=== PATIENT | female | born 1975 | race African-American/Black ===

== ENCOUNTER 2024-12-22 03:05 | Inpatient (IN) | payer BC ==
[2024-12-22] VITALS (8 sets, daily range): BP systolic 100–150; BP diastolic 67–93; PULSE 66–93; RESP 14–25; TEMP 35.9–36.9; O2SAT 89–98
[~2024-12-22] VITALS: Ht 167.6 cm; Wt 87.7 kg
[2024-12-22] MEDS: SODIUM CHLORIDE 0.9% (SEPSIS BOLUS) IV ONE (03:24)
[2024-12-22] MEDS: PIPERACILLIN/TAZO 3.375G/50ML 50 ML IV ONE (03:27)
[2024-12-22 03:37] LABS: BASOPHILS % 0.8 % (0.0-2.0); EOSINOPHILS % 1.4 % (0.0-5.0); HEMATOCRIT. 27.8 % (36.0-48.0); HEMOGLOBIN. 8.2 g/dL (12.0-16.0); LYMPHOCYTES % 26.9 % (20.0-50.0); MEAN CORPUSCULAR HEMOGLOBIN 18.4 pg (28.0-32.0); MEAN CORPUSCULAR HGB CONC 29.5 g/dL (31.0-37.0); MEAN CORPUSCULAR VOLUME 62.3 fL (81.0-99.0); MONOCYTES % 8.5 % (2.0-8.0); NEUTROPHILS % 62.4 % (40.0-76.0); PLATELET 219 x1000/uL (130-400); RED BLOOD CELL COUNT 4.47 mill/uL (4.2-5.4); RED CELL DISTRIBUTION WIDTH 22.8 % (11.6-14.6); WHITE BLOOD COUNT 7.4 x1000/uL (4.5-11.0)
[2024-12-22] MEDS: VANCOMYCIN 1G PREMIX 200 ML IV ONE (03:41)
[2024-12-22 03:45] LABS: PROTHROMBIN TIME 10.6 sec (9.6-11.0)
[2024-12-22 03:47] LABS: ADD RBC MORPHOLOGY YES; CHLORIDE 106 mEq/L (98-107); DIFFERENTIAL COMMENT 1; POTASSIUM 3.1 mEq/L (3.5-5.1); SODIUM 140 mEq/L (136-145)
[2024-12-22 03:48] LABS: CARBON DIOXIDE 26 mEq/L (21-32)
[2024-12-22 03:49] LABS: CALCIUM 8.7 mg/dL (8.7-10.4)
[2024-12-22 03:53] LABS: GLUCOSE 166 mg/dL (70-105)
[2024-12-22 03:54] LABS: AMMONIA 23 uMol/L (<32); ETHANOL BLOOD < 10 mg/dL (<10); UREA NITROGEN BLOOD 12 mg/dL (9-23)
[2024-12-22 03:55] LABS: ALANINE AMINOTRANSFERASE 15 IU/L (10-49); ALBUMIN 4.1 g/dL (3.2-4.8); ASPARTATE AMINOTRANSFERASE 25 IU/L (<34); BILIRUBIN DIRECT 0.2 mg/dL (<=3.0)
[2024-12-22 03:56] LABS: BILIRUBIN TOTAL 0.5 mg/dL (0.1-1.0); PROTEIN TOTAL 7.4 g/dL (6.0-8.3)
[2024-12-22 04:00] LABS: TROPONIN I HIGH SENSITIVITY 41 ng/L (3.0-34)
[2024-12-22 04:01] LABS: LACTIC ACID 2.2 mmol/L (0.4-2.0)
[2024-12-22] MEDS: NOREPINEPHRINE 8 MG in DEXT 5% WATER 242 ML IV STA (04:30)
[2024-12-22 04:33] LABS: BG CARBOXYHEMOGLOBIN 3.9 % (0.5-1.5); BG DEOXYHEMOGLOBIN 3.9 % (0.0-5.0); BG FRACTION INSPIRED OXYGEN 28; BG HCO3 ACT 20.2 mmol/L (21.0-28.0); BG METHEMOGLOBIN 0.2 % (0.5-1.5); BG OXYGEN SATURATION 95.9 % (94.0-98.0); BG PCO2 38.1 mmHg (32.0-45.0); BG PH 7.343 (7.350-7.450); BG PO2 93.1 mmHg (83.0-108.0); BG SAMPLE SITE RIGHT RADIAL; BG TOTAL HEMOGLOBIN 8.2 g/dL (12.0-16.0); BG VENT MODE NASAL CANNULA
[2024-12-22] MEDS ORDERED: NOREPINEPHRINE 8MG/250ML PMX 250 ML IV NR (04:45)
[2024-12-22] MEDS ORDERED: ACETAMINOPHEN 650MG SUPP PR PRN (06:45)
[2024-12-22] MEDS ORDERED: PHENYLEPHRINE 100 MG in DEXT 5% WATER 240 ML IV PRN (06:45)
[2024-12-22] MEDS ORDERED: ONDANSETRON HCL 4MG/2ML INJ IV PRN ×2 (06:45→10:15)
[2024-12-22] MEDS: DEXT 5%/0.45% NACL 1000ML 1,000 ML IV SCH (06:58)
[2024-12-22] MEDS: POTASSIUM CHLORIDE 20MEQ TABLET SR PO SCH ×2 (08:30→11:19)
[2024-12-22 09:03] LABS: PHOSPHORUS 3.5 mg/dL (2.5-4.9)
[2024-12-22] MEDS ORDERED: ACETAMINOPHEN 325MG TABLET PO PRN (10:15)
[2024-12-22] MEDS ORDERED: MAGNESIUM/ALUMINUM HYDROXIDE/SIMETHICONE 30ML UDC PO PRN (10:15)
[2024-12-22 11:01] LABS: ANISOCYTOSIS 2+; MICROCYTOSIS 2+
[2024-12-22 11:02] LABS: HYPOCHROMASIA 1+; PLATELET ESTIMATE NORMAL
[2024-12-22] MEDS: PANTOPRAZOLE SODIUM 40 MG/VIAL IV SCH (11:16)
[2024-12-22] MEDS: PIPERACILLIN/TAZO 3.375G/50ML 50 ML IV SCH (11:16)
[2024-12-22] MEDS: VANCOMYCIN 750MG/150ML (BAXTER) IV SCH (11:17)
[2024-12-22] MEDS ORDERED: METHYLPREDNISOLONE SOD SUCC 125MG/2ML (ACT-O-VIAL) IV SCH (14:00)
[2024-12-22] MEDS: SODIUM CHLORIDE 0.9% 3ML FLUSH IVF SCH (15:05)
[2024-12-22] MEDS: ACETAMINOPHEN 325MG TABLET PO PRN (15:08)
[2024-12-22 18:06] LABS: TROPONIN I HIGH SENSITIVITY 60 ng/L (3.0-34)
[2024-12-22] MEDS: SODIUM CHLORIDE 0.9% 1,000 ML IV SCH (20:25)
[2024-12-22 20:47] LABS: TROPONIN I HIGH SENSITIVITY 56 ng/L (3.0-34)
[2024-12-22] MEDS: DIPHENHYDRAMINE 50MG/ML VIAL IV PRN (22:17)
[2024-12-23] VITALS: BP 126/96; PULSE 78; RESP 22; TEMP 37.6
[2024-12-23 03:27] LABS: CLARITY URINE CLEAR (CLEAR); COLOR URINE YELLOW (YELLOW); GLUCOSE URINE NEGATIVE (NEGATIVE); KETONES URINE NEGATIVE (NEGATIVE); LEUKOCYTE ESTERASE URINE NEGATIVE (NEGATIVE); NITRITE URINE NEGATIVE (NEGATIVE); OCCULT BLOOD URINE 2+ (NEGATIVE); PROTEIN URINE TRACE (NEGATIVE); SPECIFIC GRAVITY URINE 1.022 (1.005-1.030)
[2024-12-23 03:58] LABS: *AMPHETAMINES SCREEN URINE NEGATIVE (NEGATIVE); *BARBITURATES SCREEN URINE NEGATIVE (NEGATIVE); *BENZODIAZEPINES SCREEN URINE NEGATIVE (NEGATIVE); *COCAINE SCREEN URINE PRESUMPTIVE POSITIVE (NEGATIVE); CANNABINOID URINE SCREEN PRESUMPTIVE POSITIVE (NEGATIVE); ECSTASY MDMA SCREEN URINE NEGATIVE (NEGATIVE); METHADONE URINE SCREEN NEGATIVE (NEGATIVE); OPIATES URINE SCREEN NEGATIVE (NEGATIVE); PHENCYCLIDINE URINE SCREEN NEGATIVE (NEGATIVE)
[2024-12-23 04:00] VITALS: BP 151/70; PULSE 70; RESP 20; O2SAT 96
[2024-12-23 04:22] LABS: SQUAMOUS EPITHELIAL CELL URINE 1+ /lpf (RARE/1+)
[2024-12-23 04:23] LABS: BACTERIA URINE NONE SEEN; WBC URINE 0-2 /hpf (0-2)
[2024-12-23 08:00] VITALS: BP 139/81; PULSE 80; RESP 20; TEMP 36.5; O2SAT 97
[2024-12-23 08:53] LABS: HEMOGLOBIN 7.8 g/dL (12.0-16.0); MEAN CORPUSCULAR HEMOGLOBIN 18.6 pg (28.0-32.0); MEAN CORPUSCULAR VOLUME 62.2 fL (81.0-99.0); PLATELET 202 x1000/uL (130-400); RED BLOOD CELL COUNT 4.18 mill/uL (4.2-5.4); RED CELL DISTRIBUTION WIDTH 22.7 % (11.6-14.6); WHITE BLOOD COUNT 5.6 x1000/uL (4.5-11.0)
[2024-12-23 09:01] LABS: CHLORIDE 108 mEq/L (98-107); POTASSIUM 3.3 mEq/L (3.5-5.1); SODIUM 140 mEq/L (136-145)
[2024-12-23 09:02] LABS: CALCIUM 8.5 mg/dL (8.7-10.4); CARBON DIOXIDE 24 mEq/L (21-32)
[2024-12-23 09:07] LABS: CREATININE 0.6 mg/dL (0.6-1.0); GLUCOSE 109 mg/dL (70-105); UREA NITROGEN BLOOD 6 mg/dL (9-23)
[2024-12-23 09:37] LABS: TROPONIN I HIGH SENSITIVITY 42 ng/L (3.0-34)
[2024-12-23] MEDS: POTASSIUM CHLORIDE 20MEQ TABLET SR PO NR (09:49)
[2024-12-23 12:00] VITALS: BP 165/99; PULSE 81; RESP 31; O2SAT 94
[2024-12-23 15:45] VITALS: BP 158/100; PULSE 87; TEMP 97.6; O2SAT 98
[2024-12-23 16:00] VITALS: BP 158/100; PULSE 86; RESP 18; O2SAT 98
== END 2024-12-23 17:00 | disposition home or self-care (01) | DRG 74 ==
LOC: ER 03:05 → 5EST 05:36 → ENRESERV 07:02 → CANRESERV 07:02 → EDBEDREQSVC 08:02 → ENRESERV 08:30
PROVIDERS: ADMIT Internal Medicine; ATTEND Internal Medicine
DX: G90.89 Other disorders of autonomic nervous system (principal); E87.20 Acidosis, unspecified; E11.9 Type 2 diabetes mellitus without complications; F17.200 Nicotine dependence, unspecified, uncomplicated; J45.909 Unspecified asthma, uncomplicated; R03.0 Elevated blood-pressure reading, without diagnosis of hypertension; K52.9 Noninfective gastroenteritis and colitis, unspecified; D50.9 Iron deficiency anemia, unspecified; E87.6 Hypokalemia; Z79.899 Other long term (current) drug therapy
CPT/HCPCS: 36415; 36600; 71045; 80048; 80076; 80202; 80305; 80320; 81003; 82140; 82375; 82805; 82962; 83036; 83605; 83735; 83880; 84100; 84145; 84443; 84484; 85025; 85027; 93005; 93306; 99291; A4606; J1200; J2470; J2543; J3370; J3490; J7030; J7060; G0480

== ENCOUNTER 2025-03-29 15:42 | Emergency (ER) | payer BC ==
[~2025-03-29] VITALS: Ht 165.1 cm; Wt 92.0 kg
[2025-03-29 15:43] VITALS: O2SAT 99
[2025-03-29] MEDS: FAMOTIDINE 20MG/2ML VIAL IV ONE (16:22)
[2025-03-29] MEDS: METHYLPREDNISOLONE SOD SUCC 125MG/2ML (ACT-O-VIAL) IV ONE (16:22)
[2025-03-29 16:28] VITALS: TEMP 37
[2025-03-29] MEDS ORDERED: P20 MT (17:59)
[2025-03-29] MEDS ORDERED: SULF1TAB48 MT (17:59)
[2025-03-29] MEDS ORDERED: DIPH25CA83 MT (17:59)
[2025-03-29 18:19] VITALS: BP 110/58; PULSE 90; RESP 13; O2SAT 98
== END 2025-03-29 18:30 | disposition home or self-care (01) ==
LOC: ER 15:42
DX: T78.49XA Other allergy, initial encounter (principal); L73.2 Hidradenitis suppurativa; F17.200 Nicotine dependence, unspecified, uncomplicated; I10 Essential (primary) hypertension; F10.90 Alcohol use, unspecified, uncomplicated; F12.90 Cannabis use, unspecified, uncomplicated; F14.90 Cocaine use, unspecified, uncomplicated; J45.909 Unspecified asthma, uncomplicated; X58.XXXA Exposure to other specified factors, initial encounter; Y90.9 Presence of alcohol in blood, level not specified
CPT/HCPCS: 99284; 96374; 96375; J2919; J1308